=== PATIENT | male | born 1945 | race Caucasian/White ===

== ENCOUNTER 2019-03-16 21:41 | Emergency (ER) | payer OTHER ==
[~2019-03-16] VITALS: Ht 175.3 cm; Wt 68.0 kg
[2019-03-16 21:46] VITALS: BP_SYST 160
[2019-03-17 00:48] LABS: BASOPHILS # (AUTO) 0.1 K/uL (0.0-0.2); BASOPHILS % (AUTO) 0.8 % (0.0-2.0); EOSINOPHILS # (AUTO) 0.8 K/uL (0.0-0.4); EOSINOPHILS % (AUTO) 7.9 % (0.0-4.0); HEMATOCRIT 36.6 % (36-54); LYMPHOCYTES # (AUTO) 2.9 K/uL (1.0-5.5); LYMPHOCYTES % (AUTO) 29.9 % (20.5-51.5); MEAN CORPUSCULAR HEMOGLOBIN 31 pg (27-31); MEAN CORPUSCULAR HGB CONC 33 % (32-36); MEAN CORPUSCULAR VOLUME 95 fL (79.0-98.0); MONOCYTES # (AUTO) 0.8 K/uL (0.0-1.0); MONOCYTES % (AUTO) 8.3 % (1.7-9.3); NEUTROPHILS # (AUTO) 5.1 K/uL (1.8-7.7); NEUTROPHILS % (AUTO) 53.1 % (40.0-70.0); PLATELET COUNT (AUTO) 193 K/uL (130-430); RED BLOOD CELL COUNT(AUTO) 3.86 MIL/uL (4.2-6.2); RED CELL DISTRIBUTION WIDTH 14.2 % (9.0-15.0); WHITE BLOOD COUNT (AUTO) 9.6 K/uL (4.8-10.8)
[2019-03-17 01:09] LABS: ANION GAP 9 (5-15); CALCIUM 8.8 mg/dL (8.4-11.0); CHLORIDE 101 mmol/L (98-107); CREATININE 1.35 mg/dL (0.55-1.30); GLUCOSE 165 mg/dL (70-99); POTASSIUM 4.5 mmol/L (3.5-5.1); SODIUM SERUM 133 mmol/L (136-145); UREA NITROGEN, BLOOD 10 mg/dL (8-21)
[2019-03-17 01:16] LABS: ALANINE AMINOTRANSFERASE 35 U/L (12-78); ALBUMIN 2.8 g/dL (3.4-4.8); ASPARTATE AMINOTRANSFERASE 42 U/L (10-37); TOTAL BILIRUBIN 0.4 mg/dL (0.0-1.0)
[2019-03-17 01:25] LABS: PROTHROMBIN TIME 9.7 SECS (9.5-12.5)
[2019-03-17 03:49] VITALS: BP_SYST 158
== END 2019-03-17 03:49 | disposition home or self-care (01) ==
LOC: SED 21:41
DX: R60.0 Localized edema (principal); I10 Essential (primary) hypertension; E11.9 Type 2 diabetes mellitus without complications; Z88.8 Allergy status to other drugs, medicaments and biological substances; Z91.012 Allergy to eggs
CPT/HCPCS: 36415; 71045; 80053; 82550-TC; 83880; 85025; 85610-TC; 85730-TC; 93005; 93970; 99284

== ENCOUNTER 2020-04-08 11:20 | Inpatient (IN) | payer OTHER, SELFPAY ==
[2020-04-08] VITALS (12 sets, daily range): BP systolic 57–120
[~2020-04-08] VITALS: Ht 177.8 cm; Wt 78.9 kg
--- NOTE | 2020-04-08 11:20 | NUR ---
Pt bib EMS from [facility] for n/v, diarrhea and ALOC. V/S stable, pt is afebrile. Currently resting in bed, will continue to monitor.
--- NOTE | 2020-04-08 11:20 | NUR ---
BROUGHT IN BY [facility], PLACED IN BED #3 AND TRIAGED. REPORT GIVEN TO MATIAS
--- NOTE | 2020-04-08 11:25 | NUR ---
ER Dr. Keane at bedside examining patient.
--- NOTE | 2020-04-08 11:33 | NUR ---
# 20 gauge angiocath placed to right forearm. Use of asceptic technique. Opsite placed over site. Blood return noted. Blood for lab drawn from site. Flushed with 10 cc of normal saline. No evidence of infiltration noted. Patient tolerated well.
[2020-04-08] MEDS ORDERED: NACL 0.9% 1,000 ML IV ONE ×4 (11:45→18:00)
--- NOTE | 2020-04-08 11:45 | NUR ---
Lab at bedside for blood draw.
--- NOTE | 2020-04-08 11:50 | NUR ---
Urine sample collected via straight cath as per MD order. Sample sent to lab, pt tolerated well.
--- NOTE | 2020-04-08 11:53 | NUR ---
Radiology at bedside for CXR.
--- NOTE | 2020-04-08 12:05 | NUR ---
EKG performed at BS by RN. Physician given copy of EKG for review.
[2020-04-08] MEDS ORDERED: HYDR-4272 PO (12:07)
[2020-04-08] MEDS ORDERED: FURO-150 PO (12:07)
[2020-04-08] MEDS ORDERED: METO25TA6 PO (12:07)
[2020-04-08] MEDS ORDERED: DOCU-144 PO (12:07)
[2020-04-08] MEDS ORDERED: LOSA100T3 PO (12:07)
[2020-04-08] MEDS ORDERED: CLOP75TA32 PO (12:07)
[2020-04-08] MEDS ORDERED: OMEP20CA15 PO (12:07)
[2020-04-08] MEDS ORDERED: VITD400 PO (12:07)
[2020-04-08] MEDS ORDERED: ASCO500T20 PO ×2 (12:07)
[2020-04-08] MEDS ORDERED: SSREG SUBCUT (12:07)
[2020-04-08] MEDS ORDERED: LIP80 PO (12:07)
[2020-04-08] MEDS ORDERED: DULAGLUTIDE SUBCUT (12:07)
[2020-04-08] MEDS ORDERED: TAMS-11 PO (12:07)
[2020-04-08] MEDS ORDERED: ACET325T53 PO ×2 (12:07)
[2020-04-08] MEDS ORDERED: NEU300 PO (12:07)
[2020-04-08] MEDS ORDERED: AMLO5TAB4 PO (12:07)
[2020-04-08] MEDS ORDERED: A/C/1TAB3 PO (12:07)
[2020-04-08] MEDS ORDERED: ZINC220T4 PO (12:07)
[2020-04-08] MEDS ORDERED: INSU100V9 SQ (12:07)
--- NOTE | 2020-04-08 12:07 | NUR ---
Medication reconciliation completed with information provided by [facility]. Any prior medication reconciliation on file was reviewed and corrected.
[2020-04-08 12:40] LABS: HEMATOCRIT 37.2 % (36-54); HEMOGLOBIN 12.3 g/dL (14.0-18.0); MEAN CORPUSCULAR HEMOGLOBIN 31 pg (27-31); MEAN CORPUSCULAR HGB CONC 33 % (32-36); MEAN CORPUSCULAR VOLUME 93 fL (79.0-98.0); PLATELET COUNT (AUTO) 207 K/uL (130-430); RED CELL DISTRIBUTION WIDTH 14.3 % (9.0-15.0); WHITE BLOOD COUNT (AUTO) 16.8 K/uL (4.8-10.8)
--- NOTE | 2020-04-08 12:41 | NUR ---
CRITICAL LAB RESULT: LACTIC ACID 5.5, MD LUO INFORMED.
[2020-04-08 12:42] LABS: BILIRUBIN,URINE NEGATIVE (NEGATIVE); BLOOD, URINE NEGATIVE (NEGATIVE); CLARITY/URINE CLEAR (CLEAR); COLOR,URINE YELLOW (YELLOW); GLUCOSE,URINE NEGATIVE (NEGATIVE); KETONES,URINE NEGATIVE (NEGATIVE); LEUKOCYTE ESTERASE ,URINE NEGATIVE (NEGATIVE); NITRITE, URINE NEGATIVE (NEGATIVE); PROTEIN URINE TRACE (NEGATIVE); UROBILINOGEN,URINE 0.2 (0.2-1.0)
[2020-04-08 12:55] LABS: ANION GAP 9 (5-15); CALCIUM 8.5 mg/dL (8.4-11.0); CHLORIDE 94 mmol/L (98-107); CREATININE 2.27 mg/dL (0.55-1.30); GLUCOSE 108 mg/dL (70-99); POTASSIUM 3.4 mmol/L (3.5-5.1); SODIUM SERUM 131 mmol/L (136-145); UREA NITROGEN, BLOOD 20 mg/dL (8-21)
[2020-04-08 12:59] LABS: PROTHROMBIN TIME 10.4 SECS (9.5-12.5)
[2020-04-08 13:03] LABS: ALANINE AMINOTRANSFERASE 27 U/L (12-78); ALBUMIN 2.4 g/dL (3.4-4.8); ASPARTATE AMINOTRANSFERASE 35 U/L (10-37); LIPASE 78 U/L (73-393); TOTAL BILIRUBIN 0.4 mg/dL (0.0-1.0)
[2020-04-08 13:21] LABS: BAND % (MANUAL) 9 % (0-6); BASOPHILS % (MANUAL) 0 % (0-2); EOSINOPHILS % (MANUAL) 0 % (0-7); LYMPHOCYTES % (MANUAL) 1 % (20-46); MONOCYTES % (MANUAL) 3 % (0-11)
[2020-04-08] MEDS ORDERED: cefTRIAXone 1 GM IVPB PREMIX 50 ML IV ONE (14:15)
[2020-04-08 14:43] LABS: CHOLESTEROL 109 mg/dL (<200); HDL CHOLESTEROL 41 mg/dL (>45); LDL CHOLESTEROL 55 mg/dL (<100); TRIGLYCERIDES 133 mg/dL (30-150)
--- NOTE | 2020-04-08 14:56 | NUR ---
CONSULTATION PAGED/CALLED Reason for Consultation: GASTROENTERITIS Person Who was Notified: FRANCISCO Consulting Physician: FREDRICK Supervisor [employer] Specialty: ID Ordering Physician: NISHA
--- NOTE | 2020-04-08 15:03 | NUR ---
Belongings list completed.
--- NOTE | 2020-04-08 15:06 | NUR ---
Patient will be admitted to care of Dr. Saravia. Admitted to tele unit. Will go to room 102A. Belongings list completed. Complete and up to date summary report printed. SBAR report to be given at bedside with opportunity for questions. IV site intact and patent
--- NOTE | 2020-04-08 15:19 | NUR ---
ADMISSION: The patient, PATIENCE ROUSSEAU, 74 y/o, M admitted by OWEN CAMERON MD, was given written information regarding hospital policies, unit procedures and contact persons. Valuables were checked and noted.
--- NOTE | 2020-04-08 15:40 | NUR ---
CONSULTATION PAGED/CALLED Reason for Consultation: [] ELEVATED TROP Person Who was Notified: [] BRITTANI Consulting Physician: [] DR GRIMES Camera Mechanic Specialty: [] CARDIOLOGY Ordering Physician: [] DR CAMERON
--- NOTE | 2020-04-08 15:50 | NUR ---
Opening Notes/LOW BLOOD PRESSURE/TRANSFER TO ICU Received patient from ER via gurney. Patient is very lethargic, alert and oriented x2. Patient is able to state name and , but doesnt know where he is at or why he is at the hospital. Patients reports feeling dizziness. Denies any chest pain. Patients initial blood pressure was 64/50 on left upper arm. Nurse reassessed blood pressure on right upper arm: 57/37. Nurse elevated feet and reassessed patients blood pressure at 160, noted at 64/47. Notified charge nurse. Paged Dr. Saravia and obtained new orders to transfer patient to ICU, administer another NS bolus, albumin 25% 200 cc. Noted and carried out. Awaiting orders from ICU to transfer patient.
[2020-04-08] MEDS: NACL 0.9% 1,000 ML IV SCH ×2 (15:53→22:25)
[2020-04-08] MEDS ORDERED: VANCOMYCIN HCL 1,000 MG in NS 250 ML IV SCH (16:00)
[2020-04-08] MEDS ORDERED: ALBUMIN HUMAN 25% 200 ML IV ONE (16:00)
--- NOTE | 2020-04-08 16:30 | NUR ---
TRANSFERRED PATIENT TO ICU, BED 4
--- NOTE | 2020-04-08 16:45 | NUR ---
Gave report to ARLIN Huber for continuity of care
--- NOTE | 2020-04-08 16:50 | NUR ---
ICU Opening Note Received report from Francia WETZEL for continuation of care. Received patient awake and resting in bed, denies any pain or SOB at this time. Vital signs stable. No signs or symptoms of acute distress noted. Bed locked in lowest position, bed alarm on, and call light within reach. Fall and safety precautions in place.
[2020-04-08] MEDS ORDERED: NOREPINEPHRINE BITARTRATE 4 MG in NS 246 ML IV PRN (17:30)
--- NOTE | 2020-04-08 17:30 | NUR ---
Family Update Spoke with patient's [id number] Meghna on the phone regarding patient status and plan of care. All questions answered and education provided.
[2020-04-08] MEDS ORDERED: NOREPINEPHRINE BITARTRATE 4 MG in D5W 246 ML IV PRN (18:00)
[2020-04-08] MEDS ORDERED: ALBUMIN HUMAN 25% 50 ML IV ONE (18:00)
--- NOTE | 2020-04-08 18:20 | NUR ---
Dr. Mckeon at bedside examining patient. New orders received.
--- NOTE | 2020-04-08 18:25 | NUR ---
Dr. Saravia at bedside examining patient. New orders received.
--- NOTE | 2020-04-08 19:28 | NUR ---
Closing Note Endorsed bedside report to oncoming RN using SBAR approach for continuation of care.
--- NOTE | 2020-04-08 19:40 | NUR ---
PAGED DR. CAMERON FOR ORDERS DIALED: [phone] SPOKE TO: SULEMA
--- NOTE | 2020-04-08 20:00 | NUR ---
AWAKE, ALERT, ORIENTED X4. IN NO APPARENT DISTRESS. VSS. DENIES PAIN. HAND BAND SHOVER GOOD. BREATH SOUNDS CLEAR. ON O2 AT 2L/MIN/NC. BOWEL SOUNDS (+). PULSES PALPABLE. SKIN W/D. COLOR SATISFACTORY. HOB UP TO COMFORT. SIDERAILS UP. CALL LIGHTS WITHIN REACH.
[2020-04-08] MEDS: PIPERACILLIN/TAZO 2.25G/DEX-IS 50 ML IV SCH ×2 (20:01→23:56)
--- NOTE | 2020-04-08 22:00 | NUR ---
WATCHING TV. SPEECH SLIGHTLY SLURRED.
--- NOTE | 2020-04-08 22:13 | NUR ---
PAGED DR. GRIMES FOR CRITICAL LABS DIALED: [phone] SPOKE TO: PRESLEY
--- NOTE | 2020-04-08 22:14 | NUR ---
DR GRIMES NOTIFIED OF TROPONIN 0.171. NO NEW ORDERS GIVEN.
[2020-04-09] VITALS (23 sets, daily range): BP systolic 117–173
[2020-04-09] MEDS ORDERED: ALBUMIN HUMAN 25% 50 ML IV SCH
--- NOTE | 2020-04-09 | NUR ---
DOZES ON AND OFF. NO DISTRESS NOTED. ABLE TO REPOSITION SELF.
--- NOTE | 2020-04-09 01:20 | NUR ---
DR Jolie ALCALA HERE TO EXAMINE PT. UPDATED ON STATUS. STATED HE WILL GIVE SOME ORDERS LATER.
[2020-04-09] MEDS ORDERED: LEVOFLOXACIN 500 MG/D5W 100 ML IV ONE ×2 (04:00→05:27)
--- NOTE | 2020-04-09 04:00 | NUR ---
SLEPT INTERMITTENTLY. GODWIN-CARE DONE.
[2020-04-09] MEDS: NACL 0.9% 1,000 ML IV SCH ×4 (05:13→15:00)
[2020-04-09] MEDS ORDERED: metroNIDAZOLE 500 mg/NS 100 ML IV ONE (05:27)
[2020-04-09] MEDS: metroNIDAZOLE 500 mg/NS 100 ML IV SCH ×3 (05:33→21:57)
--- NOTE | 2020-04-09 06:00 | NUR ---
SLEPT VERY LITTLE. DENIES SOB, DISTRESS, PAIN. BP GOOD. NO COMPLAINTS OFFERED AT THIS TIME. REMAINS IN GUARDED CONDITION. UO ADEQUATE.
[2020-04-09 06:25] LABS: ALANINE AMINOTRANSFERASE 22 U/L (12-78); ALBUMIN 2.8 g/dL (3.4-4.8); ANION GAP 9 (5-15); ASPARTATE AMINOTRANSFERASE 33 U/L (10-37); CALCIUM 7.5 mg/dL (8.4-11.0); CHLORIDE 103 mmol/L (98-107); CREATININE 1.42 mg/dL (0.55-1.30); GLUCOSE 91 mg/dL (70-99); POTASSIUM 3.4 mmol/L (3.5-5.1); SODIUM SERUM 135 mmol/L (136-145); THYROID STIMULATING HORMONE 0.87 uIu/mL (0.36-3.74); TOTAL BILIRUBIN 0.6 mg/dL (0.0-1.0); UREA NITROGEN, BLOOD 18 mg/dL (8-21)
[2020-04-09 06:54] LABS: BASOPHILS # (AUTO) 0.1 K/uL (0.0-0.2); BASOPHILS % (AUTO) 0.4 % (0.0-2.0); EOSINOPHILS # (AUTO) 0.3 K/uL (0.0-0.4); EOSINOPHILS % (AUTO) 1.7 % (0.0-4.0); HEMATOCRIT 26.6 % (36-54); HEMOGLOBIN 8.8 g/dL (14.0-18.0); LYMPHOCYTES # (AUTO) 0.9 K/uL (1.0-5.5); LYMPHOCYTES % (AUTO) 5.2 % (20.5-51.5); MEAN CORPUSCULAR HEMOGLOBIN 31 pg (27-31); MEAN CORPUSCULAR HGB CONC 33 % (32-36); MEAN CORPUSCULAR VOLUME 93 fL (79.0-98.0); MONOCYTES # (AUTO) 0.4 K/uL (0.0-1.0); MONOCYTES % (AUTO) 2.1 % (1.7-9.3); NEUTROPHILS # (AUTO) 15.7 K/uL (1.8-7.7); NEUTROPHILS % (AUTO) 90.6 % (40.0-70.0); PLATELET COUNT (AUTO) 143 K/uL (130-430); RED BLOOD CELL COUNT(AUTO) 2.86 MIL/uL (4.2-6.2); RED CELL DISTRIBUTION WIDTH 14.6 % (9.0-15.0); WHITE BLOOD COUNT (AUTO) 17.4 K/uL (4.8-10.8)
--- NOTE | 2020-04-09 07:45 | NUR ---
MD VISIT: Dr. Linda Mckeon here to see patient. Critical Troponin Level - 1.[address] Mckeon. No orders made.
--- NOTE | 2020-04-09 08:00 | NUR ---
RN NOTES PATIENT IS AWAKE AND ALERT, NOT IN ACUTE DISTRESS. SINUS RHYTHM ON THE MONITOR. O2 @ 2L/MIN VIA NC. SPO2 GOOD. IVF: NS @ 150 CC/HR INFUSING VIA R ARM PICC.
--- NOTE | 2020-04-09 09:56 | NUR ---
Nutrition Update Domingo Scale 11 noted. Pt admitted for gastroenteritis. Diet: N/A BMI: 25 kg/m2 RD to follow per nutrition care standards.
--- NOTE | 2020-04-09 12:15 | NUR ---
RN NOTES SPOKE TO DR. CAMERON, WITH ORDERS. PT TELEMETRY STATUS.
[2020-04-09] MEDS ORDERED: LOSARTAN POTASSIUM 50 MG TABLET (COZAAR) PO ONE (12:30)
--- NOTE | 2020-04-09 14:48 | NUR ---
Wound Evaluation: Wound Consult ordered for Low Domingo Score. Patient evaluated for a low Domingo score of 11. Patient was awake, alert, oriented x 2, and received in a Quoc Bed with an Isoflex KENNY mattress. Patient needs assist to turn in bed. Skin assessment: 1. Buttocks: Erythema and dark discoloration, present on admission. Recommend: Cleanse involved areas with mild soap and water. Pat dry. Apply moisture barrier cream to involved areas. Perform site care qid as needed for soiling. 2. Left Hallux: Chronic wound, present on admission. Wound bed has 70% dark red discoloration under the skin, 30% dark discoloration under the skin. No odor, no drainage. Periwound intact. Wound measures 0.5 cm x 1.3 cm. Recommend: Cover site with foam dressing for protection. Change dressing and assess site every 24 hours and as needed for soiling. Recommend reposition patient side to side only every 2 hours with pillow support. Elevate, off-load and float bilateral heels with pillows. Offload pressure areas with pillows for pressure re-distribution. Perform skin care and monitor skin integrity Q shift. Use moisture barrier cream on moisture susceptible areas QID and PRN for soiling. Initiate low air-loss therapy.
--- NOTE | 2020-04-09 17:48 | NUR ---
CALLED LM FOR MADISON RE: SWALLOW EVAL
--- NOTE | 2020-04-09 18:00 | NUR ---
RN NOTES SPOKE TO FAMILY, UPDATED ON PT PRESENT CONDITION.
--- NOTE | 2020-04-09 18:30 | NUR ---
MD VISIT: Dr. Manjit CAMERON HERE TO SEE PATIENT.
--- NOTE | 2020-04-09 20:00 | NUR ---
AWAKE, ALERT. SPEECH SLURRED. ON O2 AT 2L/MIN/NC. POX 99%. BREATH SOUNDS ESSENTIALLY CLEAR. BOWEL SOUNDS (+). PULSES PALPABLE. SKIN W/D. COLOR SATISFACTORY. HOB UP TO COMFORT. SIDE RAILS UP. CALL LIGHTS WITHIN REACH. SINUS RHYTHM. ECHOLS CATH PATENT DRAINING CLEAR YELLOW URINE TO GRAVITY. MISTI PICC LINE HANNAG D/I.
--- NOTE | 2020-04-09 20:53 | NUR ---
PAGED DR. GRIMES FOR ORDERS, OMARI GAGNON ENGINEER DESIGN AND CONSTRUCTION DIALED: [phone] SPOKE TO: PRESLEY
--- NOTE | 2020-04-09 20:57 | NUR ---
DR GAGNON SPOKE WITH DR. GAGNON IN REGARDS TO PT'S SBP 170'S-160'S. PER DR. GAGNON TO RESTART PT'S HOME MED METOPROLOL 25MG BID NOW AND CONTINUE HE NORMALLY TAKES AT HOME. WILL FOLLOW THROUGH WITH ORDERS.
[2020-04-09] MEDS: METOPROLOL TARTRATE 25 MG TABLET PO SCH (21:53)
--- NOTE | 2020-04-09 22:30 | NUR ---
TRANSFERRED TO ROOM 100-B IN SATISFACTORY CONDITION WITH ALL BELONGINGS. REPORT GIVEN AT BEDSIDE TO GONZALO OLIVEROS USING S-BAR METHOD.
--- NOTE | 2020-04-09 22:30 | NUR ---
ASSUMPTION OF CARE RECEIVED PATIENT FROM ICU NURSE RAND. PATIENT AWAKE, ALERT, ORIENTED X3. SLURRED SPEECH. RESPIRATIONS EVEN AND UNLABORED ON OXYGEN 2LPM VIA NASAL CANNULA. ECHOLS CATHETER IN PLACE, DRAINING YELLOW CLOUDY URINE TO GRAVITY. PICC IN PLACE TO MISTI. PATENT, FLUSHING WELL AND BLOOD RETURN NOTED. SAFETY, FALL, ASPIRATION PRECAUTIONS IN PLACE. BED LOCKED IN LOW POSITION, CALL LIGHT WITHIN REACH.
--- NOTE | 2020-04-09 22:45 | NUR ---
DIET ORDER CALLED DR CAMERON FOR DIET ORDERS NO DIET HAD BEEN ORDERED YET. PER DR CAMERON REGULAR 2G NA DIET.
--- NOTE | 2020-04-09 23:00 | NUR ---
BEDSIDE SWALLOW EVAL PATIENT DEMANDING WATER TO DRINK, NOTED SLURRED SPEECH AND DROOLING WHEN TALKING. BED SIDE EVALUATION COMPLETED, FAILED BEDSIDE SWALLOW EVAL. PATIENT STATES HE WAS EATING AND DRINKING WATER IN ICU. PER ICU NURSE RAND, PATIENT WAS GIVEN APPLESAUCE, TOLERATED WITH NO SIGNS OF ASPIRATION NOTED. PROVIDED PATIENT WITH SIP OR WATER, PATIENT BEGAN COUGHING. PLACED ON NPO UNTIL SWALLOW EVALUATION. CHARGE NURSE JAMEY AWARE. ASPIRATION PRECAUTIONS MAINTAINED.
--- NOTE | 2020-04-10 02:00 | NUR ---
RN ROUNDS PATIENT SLEEPING WITH NO SIGNS OF DISTRESS NOTED. WILL CONTINUE TO MONITOR.
[2020-04-10] MEDS: metroNIDAZOLE 500 mg/NS 100 ML IV SCH ×3 (06:13→21:12)
[2020-04-10] MEDS: LEVOFLOXACIN 500 MG/D5W 100 ML IV SCH (06:14)
[2020-04-10 08:00] VITALS: BP_SYST 172
--- NOTE | 2020-04-10 08:00 | NUR ---
INITIAL NOTES AWAKE, ALERT FORGETFUL. KEEP NPO FOR SWALLOW EVAL. DENIES ANY PAIN OR DISCOMFORT. NO DISTRESS NOTED. IVF INFUSING WELL. SAFETY PRECAUTION OBSERVED. BED ALARM ON, WILL MONITOR.
--- NOTE | 2020-04-10 08:20 | NUR ---
NOTES- PT REFUSING BLOOD DRAW AT THIS TIME.
[2020-04-10] MEDS: METOPROLOL TARTRATE 25 MG TABLET PO SCH ×2 (08:57→21:11)
[2020-04-10] MEDS ORDERED: LOSARTAN POTASSIUM 50 MG TABLET (COZAAR) PO SCH (09:00)
--- NOTE | 2020-04-10 09:30 | NUR ---
Rounds Seen by Dr. Mckeon and made aware of patients high blood pressure. Addendum: 04/10/20 at 1526 by Giovana Lucas RN MD ALSO WILL ORDER DIET FOR PATIENT
--- NOTE | 2020-04-10 09:51 | NUR ---
Notes called lab to try to draw again since patient is agreeable now for blood draw.
--- NOTE | 2020-04-10 10:00 | NUR ---
Notes- Water given with thickener. patient tolerated well.
[2020-04-10 11:21] LABS: BASOPHILS % (AUTO) 0.2 % (0.0-2.0); EOSINOPHILS # (AUTO) 0.1 K/uL (0.0-0.4); EOSINOPHILS % (AUTO) 0.7 % (0.0-4.0); HEMATOCRIT 28.4 % (36-54); HEMOGLOBIN 9.6 g/dL (14.0-18.0); LYMPHOCYTES % (AUTO) 8.8 % (20.5-51.5); MEAN CORPUSCULAR HEMOGLOBIN 32 pg (27-31); MEAN CORPUSCULAR HGB CONC 34 % (32-36); MEAN CORPUSCULAR VOLUME 93 fL (79.0-98.0); MONOCYTES # (AUTO) 0.4 K/uL (0.0-1.0); MONOCYTES % (AUTO) 3.3 % (1.7-9.3); NEUTROPHILS # (AUTO) 10.1 K/uL (1.8-7.7); PLATELET COUNT (AUTO) 149 K/uL (130-430); RED BLOOD CELL COUNT(AUTO) 3.07 MIL/uL (4.2-6.2); RED CELL DISTRIBUTION WIDTH 14.7 % (9.0-15.0); WHITE BLOOD COUNT (AUTO) 11.6 K/uL (4.8-10.8)
[2020-04-10 11:53] LABS: SODIUM SERUM 137 mmol/L (136-145)
[2020-04-10 11:54] LABS: ANION GAP 11 (5-15); CHLORIDE 104 mmol/L (98-107); CREATININE 1.08 mg/dL (0.55-1.30); GLUCOSE 134 mg/dL (70-99); POTASSIUM 2.9 mmol/L (3.5-5.1); UREA NITROGEN, BLOOD 14 mg/dL (8-21)
[2020-04-10 11:55] LABS: ALANINE AMINOTRANSFERASE 22 U/L (12-78); ALBUMIN 2.6 g/dL (3.4-4.8); ASPARTATE AMINOTRANSFERASE 32 U/L (10-37); LIPASE 32 U/L (73-393); TOTAL BILIRUBIN 0.5 mg/dL (0.0-1.0)
--- NOTE | 2020-04-10 11:58 | NUR ---
PAGED DR. MCKEON: Spoke with Dr. Mckeon and informed him that pt's blood pressure is 175/84 HR 86, asymptomatic. Patient received Cozaar and Lopressor during the day and Lopressor evening dose. Dr. Mckeon gave verbal orders for Amlodipine 2.5 mg PO [address] Mckeon instructed not to repeat patient's blood pressure until dayshift. Orders were repeated and confirmed. Addendum: 04/11/20 at 0134 by Joanne Chatman RN CORRECTION TO TIME: PAGED DR. MCKEON AT [phone]
[2020-04-10 12:06] VITALS: BP_SYST 175
[2020-04-10] MEDS ORDERED: POTASSIUM CHLORIDE 20 MEQ/PKT PACKET PO ONE ×2 (12:45→17:00)
[2020-04-10] MEDS ORDERED: POTASSIUM CHLORIDE 20 MEQ TAB.PRT.SR PO ONE (13:15)
--- NOTE | 2020-04-10 15:23 | NUR ---
Notes Resting, watching TV. denies any pain or discomfort. No acute distress noted. Will continue to monitor.
--- NOTE | 2020-04-10 15:43 | NUR ---
S.T. SWALLOW EVAL SWALLOW EVAL COMPLETED. PT PRESENTS W/ MOD OROPHARYNGEAL DYSPHAGIA W/ INCREASED ORAL TRANSIT TIME FOR PUREE AND THIN/THICK LIQUIDS, SUSPECTED ML DELAYED SWALLOW, AND COUGHING ON THIN LIQUIDS INDICATING RISK FOR ASPIRATION. REC: PUREE DIET. THICKENED LIQUIDS (NECTAR CONSISTENCY). PT STATED THAT HE WAS ON THIS SAME DIET PREVIOUS TO ADMISSION. NURSE ELLIS MARTI NOTIFIED.
--- NOTE | 2020-04-10 15:55 | NUR ---
Dietitian Recommendations * Recommend mechanical soft, finely chopped diet w/ Ensure Enlive BID (ONS provides 700 kcal/day, 40 gm protein/day) * Consider ST nel vasquez for diet texture LP, RD Please refer to Nutrition Assessment for details. Addendum: 04/10/20 at [address] Amended: Links added.
[2020-04-10 16:09] VITALS: BP_SYST 183
--- NOTE | 2020-04-10 17:44 | NUR ---
P.T. NOTES P.T. EVAL COMPLETED; REFER TO EVAL FOR DETAILS.
--- NOTE | 2020-04-10 18:09 | NUR ---
Notes Eating dinner, able to feed self slowly. No acute distress noted. Tolerated pureed diet. Will endorse
--- NOTE | 2020-04-10 19:30 | NUR ---
OPENING NOTES: Received report from dayshift nurse. Patient is laying in bed, alert and oriented x3. Patient is on tele monitor. Powers noted and draining to gravity with clear yellow urine. PICC line noted on MISTI, inserted on 04/08/2020, dressing is dry and intact. Patient's abdomen is soft and round with audible bowel sounds throughout. He does not have any complaints of pain. Ensured all safety precautions. Bed is locked and in the lowest position with alarm on. Call light within reach.
[2020-04-10 20:00] VITALS: BP_SYST 149
--- NOTE | 2020-04-10 21:10 | NUR ---
MEDICATION ADMINISTRATION: Patient is laying in bed with no s/s of distress or discomfort. His vital signs are within normal limits. Administered medications as ordered by , pt tolerated well. Patient does not have any concerns at this time. Will continue to monitor. Bed is in the lowest position in semi fowlers position. Alarm is on and call light within reach.
[2020-04-10] MEDS: NACL 0.9% 1,000 ML IV SCH (21:13)
--- NOTE | 2020-04-10 23:58 | NUR ---
PAGED DR. MCKEON: Spoke with Dr. Mckeon and informed him that pt's blood pressure is 175/84 HR 86, asymptomatic. Patient received Cozaar and Lopressor during the day and Lopressor evening dose. Dr. Mckeon gave verbal orders for Amlodipine 2.5 mg PO [address] Mckeon instructed not to repeat patient's blood pressure until dayshift. Orders were repeated and confirmed.
[2020-04-11] VITALS: BP_SYST 175
[2020-04-11] MEDS ORDERED: amLODIPine BESYLATE 5 MG TABLET PO ONE
--- NOTE | 2020-04-11 00:17 | NUR ---
AMLODIPINE GIVEN: Administered BP meds as ordered by MD. I educated patient about the benefits and potential side effects of Amlodipine. He tolerated medication well and verbalized understanding.
--- NOTE | 2020-04-11 02:00 | NUR ---
RN ROUNDS: Patient is laying in bed, appears to be asleep. He is in stable condition. Will continue to monitor.
--- NOTE | 2020-04-11 04:00 | NUR ---
RN ROUNDS: Patient is laying in bed and continues to be asleep. He is not exhibiting any s/s of distress or discomfort. Will continue to monitor. Bed is in the lowest position with alarm on, call light within reach.
[2020-04-11] MEDS: metroNIDAZOLE 500 mg/NS 100 ML IV SCH ×3 (05:53→21:11)
--- NOTE | 2020-04-11 06:30 | NUR ---
CLOSING NOTES: Patient is laying in bed, alert and oriented x3. Patient continues on tele monitor. Powers is raining to gravity with clear yellow urine. PICC line on MISTI patent and intact, inserted on 04/08/2020, next dressing 04/15/2020. He does not have any complaints at this time. All needs were met throughout shift. Ensured all safety precautions. Bed is locked and in the lowest position with alarm on. Call light within reach. Will endorse to dayshift nurse.
[2020-04-11 06:46] LABS: BASOPHILS % (AUTO) 0.2 % (0.0-2.0); EOSINOPHILS # (AUTO) 0.1 K/uL (0.0-0.4); EOSINOPHILS % (AUTO) 0.9 % (0.0-4.0); HEMATOCRIT 29.1 % (36-54); LYMPHOCYTES # (AUTO) 1.7 K/uL (1.0-5.5); LYMPHOCYTES % (AUTO) 16.3 % (20.5-51.5); MEAN CORPUSCULAR HEMOGLOBIN 32 pg (27-31); MEAN CORPUSCULAR HGB CONC 34 % (32-36); MEAN CORPUSCULAR VOLUME 92 fL (79.0-98.0); MONOCYTES # (AUTO) 0.7 K/uL (0.0-1.0); MONOCYTES % (AUTO) 6.6 % (1.7-9.3); NEUTROPHILS # (AUTO) 7.8 K/uL (1.8-7.7); PLATELET COUNT (AUTO) 163 K/uL (130-430); RED BLOOD CELL COUNT(AUTO) 3.15 MIL/uL (4.2-6.2); RED CELL DISTRIBUTION WIDTH 14.4 % (9.0-15.0); WHITE BLOOD COUNT (AUTO) 10.2 K/uL (4.8-10.8)
[2020-04-11] MEDS: LEVOFLOXACIN 500 MG/D5W 100 ML IV SCH (06:53)
[2020-04-11 07:27] LABS: ANION GAP 10 (5-15); CALCIUM 8.3 mg/dL (8.4-11.0); CHLORIDE 106 mmol/L (98-107); CREATININE 0.95 mg/dL (0.55-1.30); GLUCOSE 117 mg/dL (70-99); POTASSIUM 3.1 mmol/L (3.5-5.1); SODIUM SERUM 138 mmol/L (136-145); UREA NITROGEN, BLOOD 11 mg/dL (8-21)
--- NOTE | 2020-04-11 07:32 | NUR ---
OPENING NOTE Patient resting in the bed. No acute distress. Denied of pain. Skin warm and dry to touch. PICC line intact to MISTI, no redness, no swelling, no drainage, covered with clean and dry transparent dressing. On NS at 150ml/hr, infusing well. F/C intact, drain gravity. Safety measure maintained. Call light within reached. Bed locked in low position, side rails up, bed alarm on. Will continue to monitor.
[2020-04-11 07:55] VITALS: BP_SYST 156
--- NOTE | 2020-04-11 08:27 | NUR ---
CRITICAL LAB: TROPONIN=0.[address] Linda ford, left message and waited to call back.
--- NOTE | 2020-04-11 08:28 | NUR ---
PAGED PAGED CT [facility]ONT[place]OT AT [phone] SPOKE WITH BARBARA.
--- NOTE | 2020-04-11 08:40 | NUR ---
CT [facility] SEEN AND EXAMINED PATIENT. REPORTED TROPONIN=0.831 AND POTASSIUM=3.1.
[2020-04-11] MEDS: LOSARTAN POTASSIUM 50 MG TABLET (COZAAR) PO SCH (08:46)
[2020-04-11] MEDS: NACL 0.9% 1,000 ML IV SCH ×4 (08:46→22:45)
[2020-04-11] MEDS: METOPROLOL TARTRATE 25 MG TABLET PO SCH ×2 (08:47→21:10)
[2020-04-11] MEDS ORDERED: POTASSIUM CHLORIDE 20 MEQ TAB.PRT.SR PO ONE (09:00)
--- NOTE | 2020-04-11 10:12 | NUR ---
ROUND Patient resting in the bed. No acute distress. PICC intact, IVF infusing well. F/C intact, drain gravity. Safety measure maintained. Bed in low position, side rails up, bed alarm on. Call light within reached. Continue to monitor.
--- NOTE | 2020-04-11 11:49 | NUR ---
STOOL SPECIMEN FOR OCCULT BLOOD AND WBC SENT TO LAB. REGULAR STOOL, NOT INDICATION FOR C-DIFF AT THIS TIME.
[2020-04-11 12:15] VITALS: BP_SYST 164
--- NOTE | 2020-04-11 13:52 | NUR ---
ROUND Patient resting in the bed. No acute distress. PICC line intact, IVF infusing well. Safety measure maintained. Call light within reached. Bed locked in low position, side rails up, bed alarm on. Continue to monitor.
--- NOTE | 2020-04-11 14:55 | NUR ---
Case mgt: Charge nurse Ruth called Dr. Saravia to get dc planning order back to [facility]--per Ruth, Dr. Saravia requested LTAC eval, pt has been downgraded to med/surg..Pt is BPCI-DRG pt and we don't usually get LTAC evals on those BPCI DRG pts..I left message regarding this with Dr. Saravia and to call me. RN
[2020-04-11 16:16] VITALS: BP_SYST 144
--- NOTE | 2020-04-11 16:16 | NUR ---
ROUND Patient resting in the bed. No acute distress. PICC line intact, IVF infusing well. Safety measure maintained. Bed locked in low position, side rails up, bed alarm on. Call light within reached. Continue to monitor.
--- NOTE | 2020-04-11 18:50 | NUR ---
CLOSING NOTE Patient resting in the bed. No acute distress. Denied of pain. Skin warm and dry to touch. PICC line intact to MISTI, no redness, no swelling, no drainage, covered with clean and dry transparent dressing. On NS at 150ml/hr, infusing well. F/C intact, drain gravity. All needs met. Safety measure maintained. Call light within reached. Bed locked in low position, side rails up, bed alarm on. Will endorse to night nurse.
--- NOTE | 2020-04-11 19:35 | NUR ---
CHANGE OF SHIFT; pt. endorsed by day shift , no resp. distress. on high fowlers position. called and wants to be changed. CURING PRESS OPERATOR attended. call light within reach.
[2020-04-11 20:30] VITALS: BP_SYST 182
--- NOTE | 2020-04-11 20:30 | NUR ---
NOTES: pt. awake, alert. speech garbled. pt. drooling. follows simple commands. knows his name and where he is. IV via rt. arm with PICC line , IV NS @ 150 cc/hr. perfect bind machine operator shows sinus rhythm. on room air, denies any shortness of breath. mccarthy cath to osd. VS checked. BP high ,due for BP med. bed rest maintained , bed alarm on, fall risk precaution.
--- NOTE | 2020-04-11 21:10 | NUR ---
NOTES: due med given with apple sauce. HOB kept elevated. occ. bouts of non productive cough.
--- NOTE | 2020-04-11 22:30 | NUR ---
NOTES: pt. calm, watching tv. no distress. pt. needs attended.
--- NOTE | 2020-04-11 23:00 | NUR ---
NOTES: pt. repositioned, pulled up in bed ad turn to sides. remains awake. pt. verbalized he has insomnia.
[2020-04-12] VITALS: BP_SYST 182
--- NOTE | 2020-04-12 00:01 | NUR ---
NOTES: remains awake but calm. no distress. call light within reach.
[2020-04-12 02:00] VITALS: BP_SYST 162
--- NOTE | 2020-04-12 02:15 | NUR ---
NOTES: condition observed. repositioned. call light at bedside. cardiac pattern unchanged.
--- NOTE | 2020-04-12 02:45 | NUR ---
NOTES: pt. checked, finally went to sleep.
--- NOTE | 2020-04-12 04:00 | NUR ---
NOTES: pt. remain sleeping, turn to his sided by himself. continue to monitor.
[2020-04-12] MEDS: LEVOFLOXACIN 500 MG/D5W 100 ML IV SCH (05:16)
--- NOTE | 2020-04-12 05:30 | NUR ---
NOTES: pt. awakened, checked pads with smear of stool. Z nathanael applied on per anal area. able to help in turning. repositioned. wash cloth given for his drooling. IV antibiotic starts infusing. pt. needs attended. call light within reach.
[2020-04-12] MEDS: NACL 0.9% 1,000 ML IV SCH ×2 (06:14→20:25)
[2020-04-12] MEDS: metroNIDAZOLE 500 mg/NS 100 ML IV SCH ×3 (06:14→21:14)
[2020-04-12 06:16] LABS: ANION GAP 8 (5-15); CALCIUM 7.9 mg/dL (8.4-11.0); CHLORIDE 108 mmol/L (98-107); GLUCOSE 117 mg/dL (70-99); SODIUM SERUM 139 mmol/L (136-145); UREA NITROGEN, BLOOD 8 mg/dL (8-21)
[2020-04-12 06:28] LABS: BASOPHILS % (AUTO) 0.4 % (0.0-2.0); EOSINOPHILS # (AUTO) 0.2 K/uL (0.0-0.4); EOSINOPHILS % (AUTO) 1.9 % (0.0-4.0); HEMATOCRIT 28.2 % (36-54); HEMOGLOBIN 9.7 g/dL (14.0-18.0); LYMPHOCYTES # (AUTO) 1.8 K/uL (1.0-5.5); LYMPHOCYTES % (AUTO) 22.1 % (20.5-51.5); MEAN CORPUSCULAR HEMOGLOBIN 32 pg (27-31); MEAN CORPUSCULAR HGB CONC 35 % (32-36); MEAN CORPUSCULAR VOLUME 92 fL (79.0-98.0); MONOCYTES # (AUTO) 0.6 K/uL (0.0-1.0); MONOCYTES % (AUTO) 7.8 % (1.7-9.3); NEUTROPHILS # (AUTO) 5.5 K/uL (1.8-7.7); NEUTROPHILS % (AUTO) 67.8 % (40.0-70.0); PLATELET COUNT (AUTO) 168 K/uL (130-430); RED BLOOD CELL COUNT(AUTO) 3.07 MIL/uL (4.2-6.2); RED CELL DISTRIBUTION WIDTH 14.7 % (9.0-15.0); WHITE BLOOD COUNT (AUTO) 8.2 K/uL (4.8-10.8)
--- NOTE | 2020-04-12 06:45 | NUR ---
CLOSING NOTES; pt. went back to sleep. IVF rate @ 150 cc/hr, IV antibiotic in progress. phillip eisenberg to osd. for further care and assistance. call light within reach. will endorse to day shift.
--- NOTE | 2020-04-12 07:30 | NUR ---
OPENING NOTE Patient resting in the bed. No acute distress. Denied of pain. Skin warm and dry to touch. PICC line intact to MISTI, no redness, no swelling, no drainage, covered with clean and dry transparent dressing. On NS at 150ml/hr, infusing well. F/C intact, drain gravity. Safety measure maintained. Bed locked in low position, side rails up, bed alarm on. Call light within reached. Will continue to monitor.
[2020-04-12 07:50] VITALS: BP_SYST 154
--- NOTE | 2020-04-12 08:25 | NUR ---
POTASSIUM=3.[address] Mckeon, Dann, patient K=3.0, Dr. Mckeon with order of KCl 40 mEq PO x 1 now, and KCl 40 mEq PO x1 at 1200. Reported the reading of BP last night and this morning. Dr. Mckeon with order to decrease IVF of NS at 75ml/hr.
--- NOTE | 2020-04-12 08:30 | NUR ---
HIGH ALERT NOTE: Called Dann Contreras back at [phone] identified within the medical roster to verify physician authenticity.
[2020-04-12] MEDS: LOSARTAN POTASSIUM 50 MG TABLET (COZAAR) PO SCH (08:43)
[2020-04-12] MEDS: METOPROLOL TARTRATE 25 MG TABLET PO SCH ×2 (08:44→20:32)
[2020-04-12] MEDS ORDERED: POTASSIUM CHLORIDE 20 MEQ TAB.PRT.SR PO ONE ×2 (08:45→12:00)
--- NOTE | 2020-04-12 08:50 | NUR ---
DECREASED IVF OF NS AT 75ML/HR ORDERED.
--- NOTE | 2020-04-12 10:30 | NUR ---
ROUND Patient resting in the bed. No acute distress. PICC line intact, IVF infusing well. F/C intact, drain gravity. Safety measure maintained. Call light within reached. Bed locked in low position, side rails up, bed alarm on. Continue to monitor.
[2020-04-12 12:14] VITALS: BP_SYST 165
--- NOTE | 2020-04-12 14:02 | NUR ---
SEEN AND EXAMINED BY CT AHN. INFORMED TO DR. GRIMES, PATIENT REFUSED TO EAT BUT TOOK MEDICATION WITH APPLE SAUCE.
--- NOTE | 2020-04-12 15:15 | NUR ---
ROUND Patient resting in the bed. No acute distress. Skin warm and dry to touch. PICC line intact, IVF infusing well. F/C intact, drain gravity. Safety measure maintained. Call light within reached. Bed locked in low position, side rails up, bed alarm on. Continue to monitor.
[2020-04-12 16:22] VITALS: BP_SYST 136
--- NOTE | 2020-04-12 18:41 | NUR ---
CLOSING NOTE Patient resting in the bed. No acute distress. Denied of pain. Skin warm and dry to touch. PICC line intact to MISTI, no redness, no swelling, no drainage, covered with clean and dry transparent dressing. On NS at 75ml/hr, infusing well. F/C intact, drain gravity. All needs met. Safety measure maintained. Call light within reached. Bed locked in low position, side rails up, bed alarm on. Will endorse to night nurse.
--- NOTE | 2020-04-12 19:25 | NUR ---
CHANGE OF SHIFT; pt. awake, alert. no resp. distress. no complaints manifested. on fall risk precaution. call light within reach.
[2020-04-12 20:30] VITALS: BP_SYST 165
--- NOTE | 2020-04-12 20:35 | NUR ---
NOTES: VS checked. IVF continuous via rt. upper arm with PICC line/NS @ 75 cc./hr. on room air, no shortness of breath, HOB elevated, pt. drooling. mccarthy cath to OSD. case monitor shows sinus rhythm. both legs/heels elevated with pillow. pt. speech garbled, hard to understand at times. pt. able to follow simple commands.
--- NOTE | 2020-04-12 22:00 | NUR ---
NOTES: pt. called, had moderate amt. of soft, pasty brown stool. enrique care done, repositioned and turn to sides. Z nathanael applied on anal/buttocks area. call light within reach.
--- NOTE | 2020-04-12 23:30 | NUR ---
NOTES: condition observed. been dozing on and off. IVF continuous. no complaints. call light within reach.
[2020-04-13 00:23] VITALS: BP_SYST 177
--- NOTE | 2020-04-13 01:00 | NUR ---
NOTES: pt. sleeping when checked. no distress. continue to monitor.
--- NOTE | 2020-04-13 02:30 | NUR ---
NOTES: condition observed, unchanged. continue to monitor. pt. sleeping.
--- NOTE | 2020-04-13 04:00 | NUR ---
NOTES: pt. still sleeping. continue to monitor.bed alarm on.
--- NOTE | 2020-04-13 05:15 | NUR ---
NOTES; enrique care done, had small bm not loose for specimen for c. diff. repositioned, turn to sides. kept warm with his blanket. IVF patent, site clean and dry.
[2020-04-13] MEDS: metroNIDAZOLE 500 mg/NS 100 ML IV SCH ×2 (05:35→13:28)
[2020-04-13] MEDS: LEVOFLOXACIN 500 MG/D5W 100 ML IV SCH (06:25)
[2020-04-13 06:29] LABS: ANION GAP 7 (5-15); CALCIUM 7.7 mg/dL (8.4-11.0); CHLORIDE 108 mmol/L (98-107); CREATININE 0.83 mg/dL (0.55-1.30); GLUCOSE 98 mg/dL (70-99); POTASSIUM 3.4 mmol/L (3.5-5.1); SODIUM SERUM 137 mmol/L (136-145); UREA NITROGEN, BLOOD 6 mg/dL (8-21)
--- NOTE | 2020-04-13 06:35 | NUR ---
CLOSING NOTES; pt. went back to sleep, no resp distress, kept on room air, drools every now and then, gave washcloth and tissues. IVF patent, due antibiotic infusing. PICC line site clean and dry. mccarthy cath to osd. for further care and assist. bed alarm on. HOB elevated. call light within reach.
[2020-04-13 07:56] VITALS: BP_SYST 180
--- NOTE | 2020-04-13 07:56 | NUR ---
INITIAL ROUNDS Received pt AAOx3, no s/s resp distress, no c/o pain or discomfort. Pt just had a small, soft, bowel movement. Pt repositioned with pillow support and each leg and heel off-loaded for skin care. IVF infusing well to MISTI PICC line at ordered rate with no s/s infiltration to site and dressing, clean, dry and intact. Plan for care for the day reviewed with pt-pt nodded his head yes. Noted pt with garbled speech. Noted small dry scab to pt's left big toe and posterior left foot. Pain management, skin and safety discussed-pt nodded his head yes. HOB elevated for aspiration precautions, side rails up x3, bed alarm on for safety. Call light within reach.
[2020-04-13] MEDS: METOPROLOL TARTRATE 25 MG TABLET PO SCH (09:21)
[2020-04-13] MEDS: LOSARTAN POTASSIUM 50 MG TABLET (COZAAR) PO SCH (09:21)
--- NOTE | 2020-04-13 11:40 | NUR ---
Nutrition F/U Admitting Diagnosis: Gastroenteritis Medical History Comment: PMH: CVA, DM, HTN, L hemiparesis, BPH per physician notes 04/13 MD notes: Early dementia, Anemia, Hx of CKD Stage III, Acute cholecystitis. SARS-CoV-2 Ag (Rapid) Negative 04/08 Subjective Information: Pt seen in bed, awake, verbal but this RD is not able to understand what pt was saying/asking. Breakfast tray at bedside. RD s/w POLICYHOLDER INFORMATION CLERK who reported that pt ate about 40% of breakfast and did not drink the Ensure. Nursing staff stated that pt reported that he does not like milk or any milk based drink. Per EMR review, pt was seen by ST on 04/10 who evaluated pt w/ moderate oropharyngeal dysphagia w/ increased oral transit time and rec: pureed diet w/ nectar thick liquids. ST also noted that pt reported that he was on pureed diet [employer]. PO intake records show negligible PO intake (<25% for 5 days). Since pt dislikes milk based drinks, pt may benefit from Ensure Clear and thickener to optimize PO intake. If PO remains negligible to poor, pt may benefit from supplemental PPN for additional calories and protein. Current Diet Order/Nutrition Support: Pureed diet, Nectal thick liquid x 3 days Pertinent Medications: Reviewed (IVF) Pertinent Labs 04/13 Na 137WNL, K 3.4L, BG 98WNL, BUN 6L, CRE 0.83WNL Height: 5' 10" Weight: 04/10: 174 pounds/78.292692 kilograms Skin Integrity Comment: Domingo scale: 13; per nursing notes, L big toe w/ old wound (100% black scar, no drainage, and skin intact) Current % PO Negligible (22% average of 6 meals in 2 days) Estimated Energy Expenditure (kcals/day) 4082-5648 kcal/day (25-30 kcal/kg CBW for maintenance) Estimated Protein Required (g/day) 95 gm/day (1.2 gm/kg CBW for geriatric maintenance) Estimated Fluid Required (l/day) 2-2.4 L/day (1 ml/kcal/day for maintenance) Problem/Etiology/Signs/Symptoms Inadequate nutritional intakes related to maintenance as evidenced by negligible PO intake records unable to meet estimated nutritional requirements. (*ongoing) Suboptimal PO intake r/t difficulty swallowing AEB moderate oropharyngeal dysphagia and PO intake meeting <25% of estimated nutrient needs. (*new 04/13) Expected Outcomes/Goals - Monitor appetite and PO intakes w/ goal of pt meeting at least 75% of estimated nutritional needs, labs trending WNL, normal GI function, and skin integrity/wt maintenance Dietitian Recommendations * Recommend continue pureed diet, nectar thick liquids per ST rec. * Recommend: add Ensure Clear and thickener TID. Follow Up High Risk: F/U in 2-3days
--- NOTE | 2020-04-13 11:47 | NUR ---
Discharge Planning: DCP arranged transportation with [facility] ([phone]) BLS Will Call to [facility] ([phone]) Rm 28A. DCP took patient packet to nurse station. DCP made CM and nurse aware.
--- NOTE | 2020-04-13 11:49 | NUR ---
DC Planning:updated clinical and fax package to [facility] # [phone], tel # [phone], the discharge order is pending . Dr Saravia and ROWENA Anaya aware.
--- NOTE | 2020-04-13 11:52 | NUR ---
Dietitian Recommendations * Recommend continue pureed diet, nectar thick liquids per ST rec. * Recommend: add Ensure Clear and thickener TID. Please see Nutrition F/U note for details. GUERITA, RD
[2020-04-13 12:10] VITALS: BP_SYST 173
--- NOTE | 2020-04-13 12:16 | NUR ---
ROUNDS Pt resting quietly in bed with no s/s resp distress, no c/o pain or discomfort. Al precautions remain place. Call light within reach.
[2020-04-13] MEDS: NACL 0.9% 1,000 ML IV SCH (13:28)
[2020-04-13 16:03] VITALS: BP_SYST 145
[2020-04-13 16:05] VITALS: BP_SYST 165
--- NOTE | 2020-04-13 16:16 | NUR ---
ROUNDS Pt resting quietly in bed with no s/s resp distress, no c/o pain or discomfort, no c/o GI distress. Pt informed that he will be leaving back to [facility] at 6pm-pt nodded okay. Pt repositioned with pillow support and legs off-loaded for skin care. All precautions remain in place.
--- NOTE | 2020-04-13 18:35 | NUR ---
PT TRANSFERRED TO SNF Report given to Juan Jose at [facility]. Transfer packet with Transfer Orders and Medication Reconciliation form given to EMT with report. Exitcare provided. [facility] ID band removed, replaced with ID band with pt's name and . MISTI PICC line saline locked, dressing clean, dry and intact. Powers kept in place per MD order. All belongings sent with patient. Patient left floor via gurney escorted by EMT in no distress.
== END 2020-04-13 18:25 | DRG 871 ==
LOC: SED 11:20 → STU 14:16 → SIC 16:14 → STU 04-09 22:42 → SMU 04-11 10:25
PROVIDERS: ADMIT Internal Medicine; ATTEND Internal Medicine
PROC: 02HV33Z Insertion of Infusion Device into Superior Vena Cava, Percutaneous Approach (ICD-10-PCS; principal; 2020-04-08)
DX: A41.9 Sepsis, unspecified organism (principal); R65.21 Severe sepsis with septic shock; I24.8 Other forms of acute ischemic heart disease; E87.2 Acidosis; K81.0 Acute cholecystitis; N17.9 Acute kidney failure, unspecified; I69.354 Hemiplegia and hemiparesis following cerebral infarction affecting left non-dominant side; E11.22 Type 2 diabetes mellitus with diabetic chronic kidney disease; E11.51 Type 2 diabetes mellitus with diabetic peripheral angiopathy without gangrene; L97.529 Non-pressure chronic ulcer of other part of left foot with unspecified severity; E11.621 Type 2 diabetes mellitus with foot ulcer; E11.42 Type 2 diabetes mellitus with diabetic polyneuropathy; I25.10 Atherosclerotic heart disease of native coronary artery without angina pectoris; Z20.828 Contact with and (suspected) exposure to other viral communicable diseases; K52.9 Noninfective gastroenteritis and colitis, unspecified; R91.1 Solitary pulmonary nodule; I12.9 Hypertensive chronic kidney disease with stage 1 through stage 4 chronic kidney disease, or unspecified chronic kidney disease; I95.9 Hypotension, unspecified; N18.30 Chronic kidney disease, stage 3 unspecified; D63.8 Anemia in other chronic diseases classified elsewhere; F03.90 Unspecified dementia, unspecified severity, without behavioral disturbance, psychotic disturbance, mood disturbance, and anxiety; Z74.01 Bed confinement status; Z95.1 Presence of aortocoronary bypass graft; Z87.891 Personal history of nicotine dependence; Z91.012 Allergy to eggs; Z88.8 Allergy status to other drugs, medicaments and biological substances
CPT/HCPCS: 36415; 71045; 76376; 76700-TC; 80048; 80053; 80061; 81003; 82272; 82962; 83605; 83690-TC; 83735-TC; 84443-TC; 84484; 85007; 85025; 85027; 85610-TC; 85730-TC; 87040-TC; 87081; 87086; 89055; 92610-GN; 93005; 93306; 96361; 96365; 97110-GP; 97112-GP; 97116-GP; 97530-GP; 99291; C1751; G0378; J0696; J1956; J2543; J3370; J3490; J7030; J7050; J7060; P9046

== ENCOUNTER 2021-01-10 20:52 | Emergency (ER) | payer OTHER, SELFPAY ==
[~2021-01-10] VITALS: Ht 167.6 cm; Wt 71.7 kg
[2021-01-10 20:52] VITALS: BP_SYST 140
[~2021-01-10 20:52] MED LIST: ACET-2634 PO; AMLO5TAB4 PO; APIX5TAB4 PO; ASCO500T20 PO; DOCU-144 PO; DULAGLUTIDE SUBCUT; HYDR-4272 PO; INSU100V9 SQ; LOSA100T3 PO; METO-442 PO; MOM PO; NEU300 PO; NITR0.4T47 SL; OMEP20CA15 PO; SENN8.6T19 PO; SSREG SUBCUT; TAMS-11 PO; VITD400 PO; ZINC220T4 PO
[2021-01-11 01:03] LABS: PROTHROMBIN TIME 10.8 SECS (9.5-12.5)
[2021-01-11 02:38] VITALS: BP_SYST 140
== END 2021-01-11 02:38 | disposition home or self-care (01) ==
LOC: SED 20:52 → STU 01-11 00:13 → UNDOADMIN 01-11 00:13 → UNDODISIN 01-11 02:29 → SED 01-11 02:38
DX: T82.594A Other mechanical complication of infusion catheter, initial encounter (principal); M86.9 Osteomyelitis, unspecified; I10 Essential (primary) hypertension; E11.9 Type 2 diabetes mellitus without complications; Z45.2 Encounter for adjustment and management of vascular access device; Z88.8 Allergy status to other drugs, medicaments and biological substances; Z91.012 Allergy to eggs; Z79.899 Other long term (current) drug therapy; Z20.822 Contact with and (suspected) exposure to COVID-19
CPT/HCPCS: 36415; 71045; 85610-TC; 85730-TC; 99284; 99285